=== PATIENT | female | born 1950 | race Caucasian/White ===

== ENCOUNTER 2023-09-04 14:40 | Outpatient (CLI) | payer MEDICARE, OTHER | END 2023-09-04 14:41 | disposition home or self-care (01) | LOC: CSHRAD 14:40 | PROVIDERS: ATTEND Orthopaedic Surgery | DX: M54.50 Low back pain, unspecified (principal); M53.3 Sacrococcygeal disorders, not elsewhere classified; M43.12 Spondylolisthesis, cervical region; M50.30 Other cervical disc degeneration, unspecified cervical region; M47.812 Spondylosis without myelopathy or radiculopathy, cervical region; M51.36 Other intervertebral disc degeneration, lumbar region; M43.9 Deforming dorsopathy, unspecified; Z98.890 Other specified postprocedural states; M46.1 Sacroiliitis, not elsewhere classified; M16.9 Osteoarthritis of hip, unspecified | CPT/HCPCS: 72040; 72050; 72100; 72190 ==